=== PATIENT | male | born 1950 | race Hispanic/Latino ===

== ENCOUNTER 2018-04-02 17:46 | Emergency (ER) | payer MEDICARE ==
[2018-04-02 17:46] VITALS: BMI 26.3
[2018-04-02 18:49] LABS: BASO # 0.04 K/mm3 (0.0-2.0); EOS # 0.1 (0.0-0.7); EOS % 3.1 % (1.5-5.0); GRAN # 2.16 (1.4-6.5); GRAN % 51.6 % (50.0-68.0); HEMOGLOBIN 9.6 g/dL (14.0-18.0); LYMPH # 0.9 (1.2-3.4); LYMPH % 21.3 % (22.0-35.0); MEAN CELL VOLUME 112.2 fl (80.0-105.0); MEAN CORPUSCULAR HEMOGLOBIN 36.5 pg (25.0-35.0); MEAN CORPUSCULAR HGB CONC 32.5 g/dl (31.0-37.0); MEAN PLATELET VOLUME 10.1 fl (7.0-11.0); PLATELET COUNT 556 10^3/uL (120.0-450.0); RBC 2.63 10^6/uL (3.5-6.1); RED CELL DISTRIBUTION WIDTH 18.4 % (11.5-14.5); WHITE BLOOD COUNT 4.2 10^3/ul (4.5-11.0)
--- NOTE | 2018-04-02 18:57 | RAD ---
Date of service: 04/02/2018 HISTORY: r/o infiltrate COMPARISON: No prior. FINDINGS: LUNGS: Bibasilar atelectasis/scarring. PLEURA: No significant pleural effusion identified, no pneumothorax apparent. CARDIOVASCULAR: Cardiomegaly. OSSEOUS STRUCTURES: Degenerative changes. VISUALIZED UPPER ABDOMEN: Normal. OTHER FINDINGS: None. IMPRESSION: Bibasilar atelectasis/scarring.
[2018-04-02 19:00] LABS: ALB/GLOB RATIO 1.2 (1.1-1.8); ALBUMIN 4.2 g/dL (3.0-4.8); ALT/SGPT 27 U/L (7-56); AST/SGOT 53 U/L (17-59); BLOOD UREA NITROGEN 52 mg/dL (7-21); CALCIUM 9.1 mg/dL (8.4-10.5); GFR AFRICAN-AMERICAN > 60; GFR NON-AFRICAN AMERICAN 50
--- NOTE | 2018-04-02 19:02 | ED PDOC ---
Arrival/HPI - General Chief Complaint: Abnormal Labs Time Seen by Provider: 04/02/18 18:15 Historian: Patient - History of Present Illness Narrative History of Present Illness (Text): 04/02/18 18:27 A 67 year old male presents to the emergency department sent by Dr. Mahajan for elevated postassium. Patient has had blood drawn yesterday, which showed potassium level of 5.7. Patient mentions having medications changed 2-3 months ago. Patient denies physical complaints at this time. PMD: Dr. Salazar Past Medical History - Provider Review Nursing Documentation Reviewed: Yes - Cardiac Hx Atrial Fibrillation: Yes Hx Hypertension: Yes - Neurological Hx Paralysis: No - Hematological/Oncological Hx Blood Transfusions: No Hx Blood Transfusion Reaction: No - Musculoskeletal/Rheumatological Hx Arthritis: Yes (hip) - Psychiatric Hx Emotional Abuse: No Hx Physical Abuse: No Hx Substance Use: No - Anesthesia Hx Anesthesia: Yes Hx Anesthesia Reactions: No Hx Malignant Hyperthermia: No - Suicidal Assessment Feels Threatened In Home Enviroment: No Family/Social History - Physician Review Nursing Documentation Reviewed: Yes Family/Social History: No Known Family HX Smoking Status: Never Smoked Hx Alcohol Use: Yes (3-4 BEERS A DAY) Hx Substance Use: No Allergies/Home Meds Allergies/Adverse Reactions: Allergies No Known Allergies Allergy (Verified 09/20/16 12:26) Home Medications: Home Meds Medication Instructions Recorded Confirmed Atenolol [Tenormin] 25 mg PO DAILY 09/20/16 07/26/17 Digoxin [Lanoxin] 0.25 mg PO DAILY 09/20/16 07/26/17 amLODIPine [Norvasc] 10 mg PO DAILY 09/20/16 07/26/17 Warfarin Sodium [Jantoven] 5 mg PO QOTHERDAY 09/28/16 07/26/17 Aspirin [Aspirin Chewable] 81 mg PO DAILY 11/14/16 07/26/17 Warfarin [Coumadin] 7.5 mg PO QOTHERDAY 11/14/16 07/26/17 Furosemide [Lasix] 40 mg PO DAILY 07/25/17 07/26/17 Spironolactone [Aldactone] 1 tab PO BID 07/25/17 07/26/17 Review of Systems - Physician Review All systems were reviewed & negative as marked: Yes - Review of Systems Constitutional: absent: Fevers, Night Sweats Respiratory: absent: SOB Cardiovascular: absent: Chest Pain Gastrointestinal: absent: Abdominal Pain, Diarrhea, Nausea, Vomiting Neurological: absent: Headache, Dizziness Physical Exam Vital Signs Reviewed: Yes Vital Signs Pulse Resp BP Pulse Ox 04/02/18 19:50 83 18 113/63 96 Blood Pressure: Normal Pulse: Irregular Respiratory Rate: Normal Appearance: Positive for: Well-Appearing, Non-Toxic, Comfortable Pain Distress: None Mental Status: Positive for: Alert and Oriented X 3 - Systems Exam Head: Present: Atraumatic, Normocephalic Pupils: Present: PERRL Extroacular Muscles: Present: EOMI Conjunctiva: Present: Normal Mouth: Present: Moist Mucous Membranes Respiratory/Chest: Present: Clear to Auscultation, Good Air Exchange. No: Respiratory Distress, Accessory Muscle Use Cardiovascular: Present: Irregular Rhythm Abdomen: Present: Distention (slightly), Other (ascites). No: Tenderness Upper Extremity: Present: Normal Inspection. No: Cyanosis, Edema Lower Extremity: Present: Normal Inspection. No: Edema Neurological: Present: GCS=15, CN II-XII Intact, Speech Normal Skin: Present: Warm, Dry, Normal Color. No: Rashes Psychiatric: Present: Alert, Oriented x 3, Normal Insight, Normal Concentration Medical Decision Making ED Course and Treatment: 04/02/18 18:29 Impression: 67 year old male with elevated potassium level. Physical exam shows heart rate is irregularly irregular rhythm; abdomen is slightly distended, with positive ascites. Plan: -- EKG -- Chest X-ray -- Labs -- Urinalysis -- Reassess and disposition Progress Notes: 04/02/2018 18:55 Chest X-ray IMPRESSION: Bibasilar atelectasis/scarring. Dictator: Kaylie Harrell MD EKG: Ordered, reviewed, and independently interpreted the EKG. Rate : 89 BPM Rhythm : Atrial Fibrillation. Interpretation : Incomplete Right Bundle Branch Block. Comparison : No previous EKG for comparison. 04/02/18 19:[address] Mahajan regarding test results, who will have patient follow-up with him and senior radiation protection technician in 1-2 days. - Lab Interpretations Lab Results: 04/02/18 18:35 04/02/18 18:35 Lab Results 04/02/18 19:30: Urine Color Yellow, Urine Appearance Clear, Urine pH 6.0, Ur Specific [place] 1.020, Urine Protein Negative, Urine Glucose (UA) Negative, Urine Ketones Negative, Urine Blood Negative, Urine Nitrate Negative, Urine Bilirubin Negative, Urine Urobilinogen 0.2, Ur Leukocyte Esterase Negative 04/02/18 18:35: Sodium 143, Potassium 4.8, Chloride 110 H, Carbon Dioxide 22, Anion Gap 16, BUN 52 H, Creatinine 1.4, Est GFR ( Amer) > 60, Est GFR ( Non-Af Amer) 50, Random Glucose 91, Calcium 9.1, Magnesium 2.6 H, Total Bilirubin 0.9, AST 53, ALT 27, Alkaline Phosphatase 198 H, Lactate Dehydrogenase 577, Total Creatine Kinase 25 L, Troponin I < 0.01, Total Protein 7.5, Albumin 4.2, Globulin 3.4, Albumin/Globulin Ratio 1.2 04/02/18 18:35: WBC 4.2 L D, RBC 2.63 L, Hgb 9.6 L, Hct 29.5 L, MCV 112.2 H D, MCH 36.5 H, MCHC 32.5, RDW 18.4 H, Plt Count 556 H, MPV 10.1, Gran % 51.6, Lymph % (Auto) 21.3 L, [place] % (Auto) 23.0 H, Eos % (Auto) 3.1, Baso % (Auto) 1.0 , Gran # 2.16, Lymph # (Auto) 0.9 L, [place] # (Auto) 1.0 H, Eos # (Auto) 0.1, Baso # (Auto) 0.04, Neutrophils % (Manual) 57, Lymphocytes % (Manual) 17 L, Atypical Lymphs % 2 H, Monocytes % (Manual) 19 H, Eosinophils % (Manual) 3, Basophils % (Manual) 1, Nucleated RBC % 1, Large Platelets Present, Poikilocytosis (manual Slight, Macrocytosis (manual) 1+, Ovalocytes Slight I have reviewed the lab results: Yes - RAD Interpretation Radiology Orders: 04/02/18 18:29 CHEST PORTABLE [RAD] Stat - Scribe Statement The provider has reviewed the documentation as recorded by the Luc English Provider Scribe Provider Scribe Attestation: All medical record entries made by the Scribe were at my direction and personally dictated by me. I have reviewed the chart and agree that the record accurately reflects my personal performance of the history, physical exam, medical decision making, and the department course for this patient. I have also personally directed, reviewed, and agree with the discharge instructions and disposition. Disposition/Present on Arrival - Present on Arrival Any Indicators Present on Arrival: No History of DVT/PE: No History of Uncontrolled Diabetes: No Urinary Catheter: No History of Decub. Ulcer: No History Surgical Site Infection Following: None - Disposition Have Diagnosis and Disposition been Completed?: Yes Diagnosis: Abnormal laboratory test Disposition: HOME/ ROUTINE Disposition Time: 19:05 Condition: GOOD Additional Instructions: WAN ERNANDEZ, thank you for letting us take care of you today. The emergency medical care you received today was directed at your acute symptoms. If you were prescribed any medication, please fill it and take as directed. It may take several days for your symptoms to resolve. Return to the Emergency Department if your symptoms worsen, do not improve, or if you have any other problems. Please contact your doctor or call one of the physicians/clinics you have been referred to that are listed on the Patient Visit Information form that is included in your discharge packet. Bring any paperwork you were given at discharge with you along with any medications you are taking to your follow up visit. Our treatment cannot replace ongoing medical care by a primary care provider outside of the emergency department. Thank you for allowing the [email or web address] team to be part of your care today. Follow up with your GI doctor tomorrow morning and your senior radiation protection technician this week for re-evaluation and further management. Referrals: Phani Salazar MD [Primary Care Provider] - Follow up with primary Thuy Mahajan MD [Medical Doctor] - Follow up with primary Forms: [employer] (Yoruba)
[2018-04-02 19:11] LABS: TROPONIN I < 0.01 ng/mL
[2018-04-02 19:41] LABS: URINE BILIRUBIN NEGATIVE (NEGATIVE); URINE BLOOD NEGATIVE (NEGATIVE); URINE GLUCOSE (UA) NEGATIVE (NEGATIVE); URINE LEUKOCYTE ESTERASE NEGATIVE Leu/uL (NEGATIVE); URINE PROTEIN NEGATIVE mg/dL (<30 mg/dL); URINE UROBILINOGEN 0.2 E.U./dL (<1 E.U./dL)
[2018-04-02 19:50] LABS: URINE APPEARANCE CLEAR (CLEAR); URINE COLOR YELLOW (YELLOW)
[2018-04-02 19:51] LABS: ATYPICAL LYMPHOCYTE 2 % (0.0-0.0); BASOPHIL 1 % (0.0-1.0); EOSINOPHIL 3 % (0.0-3.0); LYMPHOCYTE 17 % (22.0-35.0); MONOCYTE 19 % (1.0-6.0); NEUTROPHIL 57 % (50.0-70.0); NUCLEATED RED BLOOD CELL 1 %; POIKILOCYTOSIS SLIGHT
[2018-04-02 19:52] LABS: LARGE PLATELETS PRESENT; OVALOCYTES SLIGHT
[2018-04-02 20:04] VITALS: BP 113/63; PULSE 83; RESP 18; O2SAT 96
--- NOTE | 2018-04-03 22:17 | CARD ---
APPROVED REPORT Date of service: 04/02/2018 EKG Measurement Heart [id number] <Conclusion> Atrial fibrillation Incomplete right bundle branch block Abnormal ECG
== END 2018-04-02 19:50 | disposition home or self-care (01) ==
LOC: ED 17:46
DX: R89.9 Unspecified abnormal finding in specimens from other organs, systems and tissues (principal); I10 Essential (primary) hypertension; I48.91 Unspecified atrial fibrillation

== ENCOUNTER 2019-01-27 18:49 | Inpatient (IN) | payer MEDICARE ==
--- NOTE | 2019-01-27 19:30 | ED PDOC ---
Arrival/HPI - General Chief Complaint: Shortness Of Breath Time Seen by Provider: 01/27/19 19:04 Historian: Patient - History of Present Illness Narrative History of Present Illness (Text): 01/27/19 19:33 A 68 year old male, whose past medical history includes CHF(on Lasix 40 mg), hypertension, A-Fib, presents to the emergency department complaining of increased shortness of breath for 2 weeks. Patient reports also experiencing abdomen and legs swelling. Patient states he is scheduled to see a cardiac surgeon at [facility] in 2 week evaluation for valve replacement. Patient denies any chest pain, syncope, nausea, fever, cough, or any other complaints at this time. Notes having abdomen extention treatment in the past for similar episode and is likely due for another one. Past Medical History - Provider Review Nursing Documentation Reviewed: Yes Primary Care Provider: Phani Salazar - Cardiac Hx Atrial Fibrillation: Yes Hx Congestive Heart Failure: Yes (R sided) Hx Hypertension: Yes - Neurological Hx Paralysis: No - HEENT Hx Cataracts: Yes (with removal) - Hematological/Oncological Hx Anemia: Yes Hx Blood Transfusions: No Hx Blood Transfusion Reaction: No - Musculoskeletal/Rheumatological Hx Arthritis: Yes (hip) - Psychiatric Hx Emotional Abuse: No Hx Physical Abuse: No Hx Substance Use: No - Surgical History Hx Eye Surgery: Yes (b/l cataract removal/ detached retina) Hx Orthopedic Surgery: Yes (r hip replacement) - Anesthesia Hx Anesthesia: Yes Hx Anesthesia Reactions: No Hx Malignant Hyperthermia: No - Suicidal Assessment Feels Threatened In Home Enviroment: No Family/Social History - Physician Review Nursing Documentation Reviewed: Yes Family/Social History: No Known Family HX Smoking Status: Never Smoked Hx Alcohol Use: Yes (3-4 BEERS A DAY) Hx Substance Use: No Allergies/Home Meds Allergies/Adverse Reactions: Allergies No Known Allergies Allergy (Verified 01/27/19 19:15) Home Medications: Home Meds Medication Instructions Recorded Confirmed amLODIPine [Norvasc] 10 mg PO DAILY 09/20/16 01/27/19 Warfarin Sodium [Jantoven] 5 mg PO QOTHERDAY 09/28/16 01/27/19 Aspirin [Aspirin Chewable] 81 mg PO DAILY 11/14/16 01/27/19 Warfarin [Coumadin] 7.5 mg PO QOTHERDAY 02/22/17 05/07/19 Furosemide [Lasix] 40 mg PO DAILY 07/25/17 01/27/19 Review of Systems - Physician Review All systems were reviewed & negative as marked: Yes - Review of Systems Constitutional: absent: Fevers Respiratory: SOB (increased). absent: Cough Cardiovascular: absent: Chest Pain, Syncope Gastrointestinal: Other (distended abdomen). absent: Nausea Skin: Other (bilateral leg swelling) Physical Exam Vital Signs Reviewed: Yes Vital Signs Pulse Resp BP Pulse Ox 01/27/19 19:02 109 H 18 128/84 96 Blood Pressure: Normal Pulse: Irregular Respiratory Rate: Normal Appearance: Positive for: Well-Appearing, Non-Toxic, Comfortable Pain Distress: None Mental Status: Positive for: Alert and Oriented X 3 - Systems Exam Head: Present: Atraumatic, Normocephalic Pupils: Present: PERRL Extroacular Muscles: Present: EOMI Conjunctiva: Present: Normal Mouth: Present: Moist Mucous Membranes Neck: Present: Normal Range of Motion Respiratory/Chest: Present: Rales (bibasilar) Cardiovascular: Present: Murmurs (systolic), Irregular Rhythm Abdomen: Present: Distention, Hernias (umbilical hernia that is easily reducible). No: Tenderness, Peritoneal Signs Back: Present: Normal Inspection Upper Extremity: Present: Normal Inspection. No: Cyanosis, Edema Lower Extremity: Present: Edema (+3 pitting edema bilaterally) Neurological: Present: GCS=15, CN II-XII Intact, Speech Normal Skin: Present: Warm, Dry, Normal Color. No: Rashes Psychiatric: Present: Alert, Oriented x 3, Normal Insight, Normal Concentration Medical Decision Making ED Course and Treatment: 01/27/19 19:38 Impression: 68 year old male with increasing shortness of breath, and swelling to abdomen and legs. Plan: -- EKG -- Chest X-ray -- Labs -- Urinalysis -- Lasix -- Reassess and disposition Progress Notes: 01/27/19 19:09 EKG: Ordered, reviewed, and independently interpreted the EKG. Rate : 96 BPM Rhythm : Atrial Fibrillation Interpretation : Normal QRS, normal QTC, incomplete RBBB, no ST elevations. Comparison : No previous EKG for comparison. Lasix 40mg ivp given. Labs and imaging results reviewed and discussed with patient. 01/27/19 20:[address] Salazar, who is aware and agrees with plan. Accepts pt in to his service. Pt will go to Telemetry observation for CHF. - Lab Interpretations I have reviewed the lab results: Yes - RAD Interpretation Narrative RAD Interpretations (Text): CXR: Pulmonary vascular congestion bilateral bases, R worse than L Radiology Orders: 01/27/19 19:20 CHEST PORTABLE [RAD] Stat Security Professional: ED Physician - EKG Interpretation Interpreted by ED Physician: Yes Type: 12 lead EKG - Medication Orders Current Medication Orders: Discontinued Medications Furosemide (Lasix) 40 mg IVP STAT STA Stop: 01/27/19 19:22 - Scribe Statement The provider has reviewed the documentation as recorded by the Luc English Provider Scribe Attestation: All medical record entries made by the Chauibsruthi were at my direction and personally dictated by me. I have reviewed the chart and agree that the record accurately reflects my personal performance of the history, physical exam, medical decision making, and the department course for this patient. I have also personally directed, reviewed, and agree with the discharge instructions and disposition. Disposition/Present on Arrival - Present on Arrival Any Indicators Present on Arrival: No History of DVT/PE: No History of Uncontrolled Diabetes: No Urinary Catheter: No History of Decub. Ulcer: No History Surgical Site Infection Following: None - Disposition Have Diagnosis and Disposition been Completed?: Yes Diagnosis: CHF (congestive heart failure) Disposition: HOSPITALIZED Disposition Time: 20:34 Condition: STABLE
[2019-01-27 19:42] VITALS: BMI 31.6
[2019-01-27 19:47] LABS: BASO # 0.15 K/mm3 (0.0-2.0); BASO % 1.8 % (0.0-3.0); EOS % 0.2 % (1.5-5.0); HEMOGLOBIN 10.9 g/dL (14.0-18.0); LYMPH # 1.4 (1.2-3.4); LYMPH % 17.4 % (22.0-35.0); MEAN CELL VOLUME 103.1 fl (80.0-105.0); MEAN CORPUSCULAR HEMOGLOBIN 30.6 pg (25.0-35.0); MEAN CORPUSCULAR HGB CONC 29.7 g/dl (31.0-37.0); MEAN PLATELET VOLUME 9.7 fl (7.0-11.0); MONO # 1.9 (0.1-0.6); RBC 3.56 10^6/uL (3.5-6.1); RED CELL DISTRIBUTION WIDTH 20.5 % (11.5-14.5); WHITE BLOOD COUNT 8.2 10^3/uL (4.5-11.0)
[2019-01-27 19:50] LABS: PLATELET COUNT 950 10^3/uL (120.0-450.0)
[2019-01-27 19:53] LABS: ALB/GLOB RATIO 0.8 (1.1-1.8); ALBUMIN 2.5 g/dL (3.0-4.8); CALCIUM 7.7 mg/dL (8.4-10.5)
[2019-01-27 19:56] LABS: PARTIAL THROMBOPLASTIN TIME 54.1 Seconds (26.9-38.3)
[2019-01-27 19:57] LABS: PROTHROMBIN TIME 55.3 SECONDS (9.4-12.5)
[2019-01-27 20:00] LABS: INR 4.98
[2019-01-27 20:05] LABS: TROPONIN I 0.01 ng/mL
[2019-01-27 20:44] LABS: NEUTROPHIL 62 % (50.0-70.0)
[2019-01-27 20:46] LABS: ANISOCYTOSIS 1+; BASOPHIL 2 % (0.0-1.0); HYPOCHROMIA 1+; LYMPHOCYTE 19 % (22.0-35.0); MONOCYTE 19 % (1.0-6.0); PLATELET ESTIMATE HIGH (NORMAL); ROULEAU 1+; TOXIC GRANULATION 2+
[2019-01-27 21:05] LABS: URINE BILIRUBIN NEGATIVE (NEGATIVE); URINE BLOOD NEGATIVE (NEGATIVE); URINE GLUCOSE (UA) NEGATIVE (NEGATIVE); URINE LEUKOCYTE ESTERASE NEGATIVE Leu/uL (NEGATIVE); URINE PROTEIN NEGATIVE mg/dL (<30 mg/dL); URINE UROBILINOGEN 0.2 E.U./dL (<1 E.U./dL)
[2019-01-27 21:08] LABS: URINE APPEARANCE CLEAR (CLEAR); URINE COLOR YELLOW (YELLOW)
[2019-01-28 07:24] LABS: BASO # 0.11 K/mm3 (0.0-2.0); BASO % 1.5 % (0.0-3.0); EOS % 0.5 % (1.5-5.0); HEMOGLOBIN 10.5 g/dL (14.0-18.0); LYMPH # 1.2 (1.2-3.4); LYMPH % 16.5 % (22.0-35.0); MEAN CELL VOLUME 102.8 fl (80.0-105.0); MEAN CORPUSCULAR HEMOGLOBIN 29.7 pg (25.0-35.0); MEAN CORPUSCULAR HGB CONC 28.9 g/dl (31.0-37.0); MEAN PLATELET VOLUME 9.7 fl (7.0-11.0); MONO # 1.6 (0.1-0.6); MONO % 21.6 % (1.0-6.0); RBC 3.53 10^6/uL (3.5-6.1); RED CELL DISTRIBUTION WIDTH 20.5 % (11.5-14.5); WHITE BLOOD COUNT 7.4 10^3/uL (4.5-11.0)
[2019-01-28 07:29] LABS: ALB/GLOB RATIO 0.8 (1.1-1.8); ALBUMIN 2.5 g/dL (3.0-4.8); ALT/SGPT 27 U/L (7-56); AST/SGOT 53 U/L (17-59); BLOOD UREA NITROGEN 63 mg/dL (7-21); CALCIUM 7.8 mg/dL (8.4-10.5); GFR NON-AFRICAN AMERICAN 35; PROTHROMBIN TIME 55.2 SECONDS (9.4-12.5); TROPONIN I < 0.01 ng/mL
[2019-01-28 07:31] LABS: INR 4.88; PLATELET COUNT 882 10^3/uL (120.0-450.0)
--- NOTE | 2019-01-28 08:08 | RAD ---
Date of service: 01/27/2019 HISTORY: dyspnea COMPARISON: 04/02/2018 TECHNIQUE: 1 view obtained. FINDINGS: LUNGS: Minimal right lower lobe infiltrate and small effusion PLEURA: No significant pleural effusion identified, no pneumothorax apparent. CARDIOVASCULAR: No aortic atherosclerotic calcification present. Moderate cardiomegaly no pulmonary vascular congestion. OSSEOUS STRUCTURES: No significant abnormalities. VISUALIZED UPPER ABDOMEN: Normal. OTHER FINDINGS: None. IMPRESSION: Minimal right lower lobe infiltrate and small effusion
[2019-01-28] MEDS: Milrinone 20mg/100ml D5W 100 ML IV PRN ×2 (09:23→22:10)
--- NOTE | 2019-01-28 09:40 | CARD ---
APPROVED REPORT Date of service: 01/27/2019 EKG Measurement Heart [id number] <Conclusion> Atrial fibrillation Low voltage QRS RSR' or QR pattern in V1 suggests right ventricular conduction delay Cannot rule out Anterior infarct, age undetermined Abnormal ECG
[2019-01-28 09:53] LABS: ANISOCYTOSIS 1+; BAND 4 % (0-2); LYMPHOCYTE 13 % (22.0-35.0); METAMYELOCYTE 4 %; MICROCYTOSIS 1+; MONOCYTE 15 % (1.0-6.0); NEUTROPHIL 64 % (50.0-70.0); PLATELET ESTIMATE HIGH (NORMAL)
[2019-01-28] MEDS: metOLazone 2.5 MG TAB PO SCH ×2 (17:35→17:55)
--- NOTE | 2019-01-28 18:38 | HP ---
HISTORY OF PRESENT ILLNESS: The patient is a 68-year-old man with a past medical history of CHF and atrial fibrillation who presented for evaluation of a 2 week history of progressively worsening lower extremity edema, exertional dyspnea and 3-pillow orthopnea. The patient is followed at [facility] by a cardiovascular surgeon and is pending evaluation for possible valve replacement/repair (the patient is unclear as to which valve). He has been doing fairly well until approximately 2 weeks ago when he developed pedal edema progressing to his scrotum and lower abdomen. He subsequently developed exertional dyspnea associated with 3-pillow orthopnea and cough intermittently productive of clear sputum. He denies fevers, chills, rigors or chest pain. Given his worsening lower edema and dyspnea, he opted for ED evaluation. In the ED he was afebrile and hemodynamically stable. On physical examination he was noted to have 3+ bilateral lower extremity edema and bibasilar crackles. Laboratory studies demonstrated an elevated BNP of 4510. The patient received a dose of intravenous Lasix and was subsequently admitted to the telemetry benitez for continued management of acute on chronic systolic heart failure exacerbation. PAST MEDICAL HISTORY: As per HPI, also hypertension, PVD, osteoarthritis of bilateral hips, alcoholic cirrhosis and history of myelodysplastic syndrome. PAST SURGICAL HISTORY: Left inguinal hernia repair, bilateral cataract removal and repair of detached retinas bilaterally. ALLERGIES: NKDA. MEDICATIONS: Amlodipine 10 mg p.o. daily, Lasix 40 mg p.o. b.i.d., Aspirin 81 mg p.o. daily, Coumadin 7.5 mg every other day and Atenolol 25 mg p.o. daily. FAMILY HISTORY: Noncontributory. SOCIAL HISTORY: The patient reports a former [id number] smoking history but quit 20 years ago. He reports former heavy daily alcohol use but quit several months ago. He denies illicit drug abuse. REVIEW OF SYSTEMS: A 12-point review of systems is negative except as per HPI. PHYSICAL EXAMINATION: VITAL SIGNS: Temperature 97.6, pulse 90, blood pressure 101/66, respiratory rate 20, oxygen saturation 96% on 2 liters nasal cannula. GENERAL: No apparent distress. HEENT: PERRL, EOMI. No scleral icterus. Mild conjunctival pallor is noted. NECK: No JVD. LUNGS: Decreased breath sounds at the bases with bibasilar crackles. CARDIOVASCULAR: Irregularly irregular. Normal S1, S2. Grade II/ murmur to RUSB. ABDOMEN: Distended with positive fluid wave. No rigidity, no tympany. EXTREMITIES: 2+ pedal edema bilaterally. NEUROLOGIC: Awake, alert and oriented x 3. No focal motor deficits. LABORATORY DATA: WBC 7.4 with 60% neutrophils, hemoglobin 10.5, hematocrit 36, platelets 882. Sodium 137, potassium 4.3, chloride 104, bicarb 26, BUN 63, creatinine 1.9, glucose 88. BNP 4510. Troponin < 0.01 x 2 sets. INR 4.88. IMAGING STUDIES: 1. Chest x-ray demonstrated cardiomegaly with right lower lobe infiltrate and effusion. ASSESSMENT: The patient is a 68-year-old man with a past medical history of congestive heart failure, atrial fibrillation and alcoholic cirrhosis who presented for evaluation of a 2 week history of progressively worsening exertional dyspnea, 3- pillow orthopnea and pedal edema and was admitted for management of acute on chronic systolic heart failure exacerbation. PLAN: 1. Acute on chronic systolic heart failure exacerbation. Input from Dr. Hirsch noted and greatly appreciated. The patient remains on Lasix 40 mg IV q. 12 hours and Milrinone infusion. We will obtain the records from [facility] to review his most recent echocardiogram. We will continue to monitor strict I&O's and daily weights. 2. Atrial fibrillation. The patient remains rate-controlled. Continue Atenolol 25 mg p.o. daily. Coumadin remains on hold given his supratherapeutic INR. Due to the fact the patient not having active bleed, there is no indication to reverse his INR at present. 3. Hypertension. Blood pressure controlled. Continue Atenolol 25 mg p.o. daily. 4. Alcoholic cirrhosis. We will continue to diurese the patient as above and will defer paracentesis at present. 5. Myelodysplastic syndrome. Labs demonstrate hemoglobin and platelets at the patient's baseline. 6. Peripheral vascular disease. 7. Prophylaxis. GI prophylaxis not indicated as the patient is eating. DVT prophylaxis not indicated as the patient remains on Coumadin. CODE STATUS: Full code. Sameer Salazar MD [facility] # [id number] ION
--- NOTE | 2019-01-28 20:44 | CON ---
DATE: 01/28/2019 CONSULT SERVICE: Cardiology. REASON FOR CONSULTATION AND FOLLOWUP: Cardiac evaluation with shortness of breath, decompensated congestive heart failure, and history of chronic atrial fibrillation. BRIEF CLINICAL HISTORY: This is a 68-year-old male with a past medical history significant for congestive heart failure; history of alcohol abuse heavy in the past, quit since January; history of hypertension; history of thrombocytopenia; history of atrial fibrillation for the last 25 years, and on Coumadin for the last 10 years, being followed by Dr. Clayton in [place] and recently went to [facility], being evaluated and echo done, was told that one of the valves is widely opened and being evaluated for open heart surgery and cardiac catheterization, who came in with a scrotal swelling, leg swelling, and generalized body swelling and shortness of breath. PAST MEDICAL HISTORY: Significant for congestive heart failure, chronic atrial fibrillation, thrombocytopenia in the past, and history of cardiac catheterization [address] [facility], has normal coronaries. The patient has platelet disorder, not thrombocytopenia. The patient says there are low platelets, but actually it is high platelets and he was told by Dr. Mahajan that it is secondary to probably alcohol abuse in July; since the patient stopped and now the platelet number went up, though initially it was told that his number was low. History of chronic atrial fibrillation in the past last 25 years and Coumadin for last 10 years. SOCIAL HISTORY: Denies any history of smoking, but history of heavy alcohol abuse in the past and according to him, it is slowed down since July last year. CURRENT MEDICATIONS: Amlodipine 10 mg daily, Coumadin 7.5 alternate with 5 mg daily, Lasix 40 mg daily, and baby aspirin 81 mg daily. PREVIOUS CARDIAC WORKUP: The patient had a stress test on 11/14/2016, essentially normal myocardial perfusion study and ejection fraction 61%. REVIEW OF SYSTEMS: As per HPI. PHYSICAL EXAMINATION: As follows; GENERAL: Height of the patient 6 feet 1 inch, weight of the patient 240 pounds, and body mass index 32 kg/m2. VITAL SIGNS: Temperature afebrile, heart rate 90, and blood pressure 101/66. HEENT: PERRLA. Extraocular muscles intact. NECK: Supple. No carotid bruits or thyromegaly. CHEST: Clear to auscultation. HEART: S1 and S2 regular. ABDOMEN: Soft. EXTREMITIES: 1 to 2+ pedal edema; significant enlargement of the scrotal swelling and generalized anasarca noted. LABORATORY DATA: Blood workup as follows; WBC 7.4, hemoglobin 10.5, hematocrit 36.3, and platelet count 882. Chemistry shows sodium 137, potassium 4.3, chloride 104, carbon dioxide 26, anion gap of 11, BUN 63, and creatinine 1.9. Troponin 0.01 x2 negative. EKG; atrial fibrillation, heart rate of 96, poor RR progression, and small low voltage QRS complex. Chest x-ray consistent with mild congestion, poor inspiratory effort, but shows minimal congestion. 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 Recently being evaluated at [facility] and found to be significant regurgitant valvular heart disease and being evaluated by surgeon for open heart surgery. Next appointment with the surgeon in next week. Admitted with acute decompensated congestive heart failure with scrotal swelling and 2+ pedal edema. Last stress test in 2017 shows a preserved left ventricular function. RECOMMENDATIONS: We will get the report from [facility], the echo done last week. Start IV Lasix. We will start on Primacor and aggressive diuresis. The patient is on Coumadin. Today Coumadin level is 4.8, yesterday it was 4.98, so we will hold the Coumadin for now and follow up level tomorrow. Even the INR was below 2.5, we will start Coumadin. Further recommendations depending upon the hospital course. We will follow with you. Discussed with Dr. Sameer Salazar. The patient also has a history of cardiac catheterization 10 years ago and was told normal at [facility]. Estevan Hirsch MD
[2019-01-28] MEDS ORDERED: metOLazone 2.5 MG TAB PO SCH (20:54)
--- NOTE | 2019-01-28 22:46 | PN ---
DATE: 01/28/2019 REASON FOR DICTATION: Fax report from [facility] received and in summary as follows: The patient had an echocardiography done on 01/13/2019 that revealed normal LV size and function, ejection fraction reported 55% to 60%, diastolic dysfunction, severely dilated and moderately hypokinetic RV suggestive of RV pressure and volume overload, severe biatrial enlargement, [id number] eccentric posteriorly and laterally directed mitral regurgitation, poorly coaptation with torrential severe tricuspid regurgitation noted, mild aortic stenosis, at least moderate pulmonary hypertension, RV systolic pressure reported 45 to 50. Pulmonary artery pressure may be underestimated given the RV single chamber physiology. So, we will hold the echo and plan is to continue Primacor, continue diuresed when the patient stabilizes, we will send back to [facility] because the patient is being evaluated by the surgeon for mitral valve as well as tricuspid repair. Thank you Dr. Sameer Salazar for providing us the opportunity in taking care of the patient, Jusitn Rojo. Estevan Hirsch MD
[2019-01-29 07:07] LABS: BASO # 0.04 K/mm3 (0.0-2.0); BASO % 0.6 % (0.0-3.0); EOS % 0.6 % (1.5-5.0); HEMOGLOBIN 9.8 g/dL (14.0-18.0); LYMPH # 0.9 (1.2-3.4); LYMPH % 15.1 % (22.0-35.0); MEAN CELL VOLUME 102.1 fl (80.0-105.0); MEAN CORPUSCULAR HEMOGLOBIN 29.8 pg (25.0-35.0); MEAN CORPUSCULAR HGB CONC 29.2 g/dl (31.0-37.0); MEAN PLATELET VOLUME 9.7 fl (7.0-11.0); MONO # 1.4 (0.1-0.6); MONO % 21.9 % (1.0-6.0); RBC 3.29 10^6/uL (3.5-6.1); RED CELL DISTRIBUTION WIDTH 19.9 % (11.5-14.5); WHITE BLOOD COUNT 6.2 10^3/uL (4.5-11.0)
[2019-01-29 07:19] LABS: ALB/GLOB RATIO 0.8 (1.1-1.8); ALBUMIN 2.4 g/dL (3.0-4.8); CALCIUM 7.8 mg/dL (8.4-10.5)
[2019-01-29 07:28] LABS: PROTHROMBIN TIME 44.7 SECONDS (9.4-12.5)
[2019-01-29 07:29] LABS: INR 3.96
--- NOTE | 2019-01-29 10:29 | PN ---
SUBJECTIVE: The patient was seen and examined at bedside on the telemetry benitez. No acute events overnight. He remains afebrile and hemodynamically stable. The patient has diuresed 2 liters since admission and reports significant improvement in his presenting symptoms. This morning he feels ok and offers no complaints. OBJECTIVE: VITAL SIGNS: Temperature 98, pulse 108, blood pressure 125/60, respiratory rate 20, oxygen saturation 98% on room air. GENERAL: No apparent distress. HEENT: PERRL, EOMI. No scleral icterus. Mild conjunctival pallor is noted. NECK: No JVD. No bruits. LUNGS: Decreased breath sounds at the bases with bibasilar crackles. CARDIOVASCULAR: Irregularly irregular. Normal S1, S2, Grade II/ murmur to right upper sternal border. ABDOMEN: Soft, but distended. No rigidity, no tympany. No tenderness. EXTREMITIES: 2+ pedal edema bilaterally. NEUROLOGIC: Awake, alert and oriented x 3. No focal motor deficits. LABORATORY DATA: WBC 6.2, hemoglobin 9.8, hematocrit 34, platelets 827. Sodium 135, potassium 4.4, chloride 103, bicarb 26, BUN 64, creatinine 1.9, glucose 90. ASSESSMENT: The patient is a 68-year-old man with a past medical history of diastolic heart failure, Afib and alcoholic cirrhosis who was admitted for management of acute on chronic diastolic heart failure exacerbation. PLAN: 1. Acute on chronic diastolic heart failure exacerbation. Input from Dr. Hirsch noted and the patient was diuresed nicely since admission. He remains on Lasix 40 mg IV b.i.d. and Milrinone infusion. After reviewed the records from [facility] it appears that the patient has predominantly right-sided heart failure with a preserved EF. He also has rather severe tricuspid valve disease and mitral valve disease and is pending evaluation for repair with a cardiothoracic surgeon. 2. Afib. The patient remains rate-controlled. Continue Atenolol 25 mg p.o. daily. Coumadin remains on hold given supratherapeutic INR. We will continue to monitor INR daily with goal 2-3. 3. Hypertension. Blood pressure controlled. Continue Atenolol 25 mg p.o. daily. 4. Alcoholic cirrhosis. 5. Myelodysplastic syndrome. 6. Peripheral vascular disease. 7. CKD stage III/IV. Input from Dr. Connell noted. Continue with care as per Dr. Connell. 8. Severe tricuspid regurgitation. The patient is pending evaluation with a cardiothoracic surgeon at [facility]. 9. Prophylaxis. GI prophylaxis is not indicated as the patient is eating. DVT prophylaxis is not indicated as the patient remains on Coumadin. CODE STATUS: Full code. Sameer Salazar MD MTDD
--- NOTE | 2019-01-29 10:30 | CON ---
DATE OF CONSULTATION: 01/28/2019 REASON FOR CONSULTATION: Acute kidney injury, edema, shortness of breath. HISTORY OF PRESENTING ILLNESS: A 68-year-old male, previously unknown to me. The patient presented to the emergency room for progressive swelling of his lower extremities, swelling of his scrotum, difficulty breathing, dyspnea on exertion. In the emergency room, he was found to be normotensive, afebrile, his heart rate was found to be somewhat elevated at 109. His hemoglobin was 10.9. His BUN was 62 and creatinine was 1.9. Consultation is requested for acute kidney injury. The patient has a history of alcoholic liver disease, anasarca, cirrhosis of the liver, CHF, hypertension, chronic kidney disease stage III?. The patient reports that he is scheduled to have an evaluation at [facility] for valve replacement. PAST MEDICAL AND SURGICAL HISTORY: Hypertension, peripheral vascular disease, osteoarthritis of the hips, alcoholic cirrhosis, myelodysplastic syndrome, atrial fibrillation. FAMILY HISTORY: Noncontributory. SOCIAL HISTORY: No smoking, heavy alcohol abuse, five to six drinks per day for the last 50 years, stopped 6 months ago. No drug abuse. ALLERGIES: NO KNOWN DRUG ALLERGIES. MEDICATIONS AT HOME: Amlodipine 10 mg, Coumadin, furosemide 40 mg, aspirin 81. PHYSICAL EXAMINATION: GENERAL: Elderly male lying in bed, in moderate respiratory distress. VITAL SIGNS: Blood pressure 108/62, heart rate 95, respiratory rate 20-24, temperature 97.6. HEENT: Normocephalic, atraumatic, positive pallor. NECK: Supple, no JVD. LUNGS: Bilateral equal entry, bilateral equal expansion, minimal basilar rales. CARDIAC: S1 and S2, regular rate and rhythm, no murmur, no rub. ABDOMEN: Obese, distended, soft, positive fluid thrill, bowel sounds present. EXTREMITIES: 3+ pitting edema of the lower extremities, edema of the scrotal sac INTAKE AND OUTPUT: 250/300. LABORATORY DATA: WBC 7.4, hemoglobin 10.5, hematocrit 36, platelets 882. Sodium 37, potassium 4.3, chloride 104, CO2 of 26, BUN 63, creatinine 1.9, glucose 88, calcium 7.8, AST 53, ALT 27, albumin 2.5. Urinalysis, yellow, clear, pH 6, specific 1020, protein negative, blood negative. CURRENT MEDICATIONS: Aspirin 81, Lasix 40 IV every 12 hours, Primacor 20 mg, Tenormin 25. ASSESSMENT: 1. Anasarca, dyspnea on exertion, total body volume overload, likely secondary to right heart failure. 2. History of alcoholic liver disease, cirrhosis of the liver. 3. Myelodysplastic syndrome, anemia, thrombocytosis 4. Hypertension. 5. Acute kidney injury superimposed on chronic kidney disease stage III?. 6. Valvular heart disease. PLAN: 1. Continue Lasix 40 IV every 12 hours. 2. Add metolazone 2.5 b.i.d. 3. Add Aldactone 25 b.i.d. 4. Check intake and output. 5. Daily electrolytes. 6. Etiology of his acute kidney injury is cardiorenal syndrome. Brenda Connell MD MTDD
--- NOTE | 2019-01-29 12:05 | CP.PCM.CON ---
<Mitch Dixonson - Last Filed: 01/29/19 12:01> History of Present Illness - History of Present Illness History of Present Illness: Podiatry consult - Drs. Aleman/Niki 68M seen and evaluated at bedside this AM for elongated nails. Resting comfortably. Reports mild discomfort to nails when putting on socks and shoegear as well as when pulling up bedsheets. States that he cuts his nails at home but occasionally notices bleeding from the nails and does not have full feeling in his toes and feet. Denies n/v/f/c today and has no other acute pedal complaints. Past Patient History - Past Social History Smoking Status: Never Smoked - CARDIAC Hx Cardiac Disorders: Yes Hx Cardia Arrhythmia: Yes (afib) Hx Congestive Heart Failure: Yes Hx Hypercholesterolemia: Yes Hx Hypertension: Yes Hx Peripheral Edema: Yes - PULMONARY Hx Respiratory Disorders: Yes - NEUROLOGICAL Hx Neurological Disorder: Yes - HEENT Hx HEENT Problems: Yes (reading galsses) Hx Cataracts: Yes (with removal) - RENAL Hx Chronic Kidney Disease: No - ENDOCRINE/METABOLIC Hx Endocrine Disorders: No - HEMATOLOGICAL/ONCOLOGICAL Hx Blood Disorders: Yes (blood transfusion) Hx Anemia: Yes - INTEGUMENTARY Hx Dermatological Problems: No - MUSCULOSKELETAL/RHEUMATOLOGICAL Hx Musculoskeletal Disorders: No - GASTROINTESTINAL Hx Gastrointestinal Disorders: No - GENITOURINARY/GYNECOLOGICAL Hx Genitourinary Disorders: No - PSYCHIATRIC Hx Psychophysiologic Disorder: Yes (etoch and stopped for one year ago) - SURGICAL HISTORY Hx Surgeries: Yes (hernia repair,cataract sx) Hx Orthopedic Surgery: Yes (r hip replacement) - ANESTHESIA Hx Anesthesia: Yes Hx Anesthesia Reactions: No Hx Malignant Hyperthermia: No Meds Allergies/Adverse Reactions: Allergies Allergy/AdvReac Type Severity Reaction Status Date / Time No Known Allergies Allergy Verified 01/27/19 19:15 - Medications Medications: Current Medications Aspirin (Aspirin Chewable) 81 mg PO DAILY [facility] Last Admin: 01/29/19 11:39 Dose: 81 mg Atenolol (Tenormin) 25 mg PO DAILY [facility] Last Admin: 01/29/19 11:39 Dose: 25 mg Furosemide (Lasix) 40 mg IVP 0600,1800 [facility] Last Admin: 01/29/19 06:47 Dose: 40 mg Milrinone Lactate/Dextrose (Primacor 20mg/100ml D5w) 100 mls @ 6.532 mls/hr IV .[id number] PRN; Protocol PRN Reason: TITRATE PER MD ORDER Stop: 01/30/19 08:40 Last Admin: 01/28/19 22:10 Dose: 0.2 mcg/kg/min, 6.532 mls/hr Metolazone (Zaroxolyn) 2.5 mg PO 0530,1730 [facility] Spironolactone (Aldactone) 50 mg PO BID [facility] Last Admin: 01/29/19 11:39 Dose: 50 mg Physical Exam - Constitutional Appears: Non-toxic - Head Exam Head Exam: ATRAUMATIC - Extremities Exam Additional comments: VASC: pulses nonpalpable 2/2 moderate pitting edema; temp gradient wnl; cap refill <3 seconds to digits DERM: no open lesions or wounds, dystrophic elongated nails x 10 ORTHO: no gross pathology noted NEURO: diminished - Neurological Exam Neurological exam: Alert, Oriented x3 - Psychiatric Exam Psychiatric exam: Normal Affect Results - Vital Signs Recent Vital Signs: Last Vital Signs Temp 98 F 01/29/19 06:00 Pulse 108 H 01/29/19 06:00 Resp 20 01/29/19 06:00 BP 125/60 01/29/19 06:47 Pulse Ox 96 01/28/19 06:00 - Labs Result Diagrams: 01/29/19 06:30 01/29/19 06:30 Labs: Laboratory Results - last 24 hr 01/29/19 01/29/19 01/29/19 06:30 06:30 06:30 WBC 6.2 RBC 3.29 L Hgb 9.8 L Hct 33.6 L MCV 102.1 MCH 29.8 MCHC 29.2 L RDW 19.9 H Plt Count 827 H* MPV 9.7 Neut % (Auto) 61.8 Lymph % (Auto) 15.1 L Gray % (Auto) 21.9 H Eos % (Auto) 0.6 L Baso % (Auto) 0.6 Lymph # (Auto) 0.9 L Gray # (Auto) 1.4 H Eos # (Auto) 0.0 Baso # (Auto) 0.04 Absolute Neuts (auto) 3.80 PT 44.7 H INR 3.96 H* Sodium 135 Potassium 4.4 Chloride 103 Carbon Dioxide 26 Anion Gap 10 BUN 64 H Creatinine 1.9 H Est GFR ( Amer) 43 Est GFR (Non-Af Amer) 35 Random Glucose 90 Calcium 7.8 L Phosphorus 5.3 H Magnesium 2.3 H Total Bilirubin 0.7 AST 49 ALT 23 Alkaline Phosphatase 180 H Total Protein 5.5 L Albumin 2.4 L Globulin 3.0 Albumin/Globulin Ratio 0.8 L Triglycerides 96 Cholesterol 113 L LDL Cholesterol Direct 63 HDL Cholesterol 27 L TSH 3rd Generation 01/29/19 06:30 WBC RBC Hgb Hct MCV MCH MCHC RDW Plt Count MPV Neut % (Auto) Lymph % (Auto) Gray % (Auto) Eos % (Auto) Baso % (Auto) Lymph # (Auto) Gray # (Auto) Eos # (Auto) Baso # (Auto) Absolute Neuts (auto) PT INR Sodium Potassium Chloride Carbon Dioxide Anion Gap BUN Creatinine Est GFR ( Amer) Est GFR (Non-Af Amer) Random Glucose Calcium Phosphorus Magnesium Total Bilirubin AST ALT Alkaline Phosphatase Total Protein Albumin Globulin Albumin/Globulin Ratio Triglycerides Cholesterol LDL Cholesterol Direct HDL Cholesterol TSH 3rd Generation 1.72 Assessment & Plan - Assessment and Plan (Free Text) Assessment: 68M with elongated dystrophic toenails Plan: Patient seen and evaluated Discussed in detail with Dr. Prince Nails cut with nail nipper without incident, patient tolerated well Instructed patient to f/u as outpatient with Dr. Prince for risk assessment and nailcare Podiatry to sign off Thank you for the consult - Date & Time Date: 01/29/19 Time: 12:05 <Melissa Prince - Last Filed: 01/30/19 11:36> Meds - Medications Medications: Current Medications Aspirin (Aspirin Chewable) 81 mg PO DAILY [facility] Last Admin: 01/30/19 10:00 Dose: 81 mg Atenolol (Tenormin) 25 mg PO DAILY [facility] Last Admin: 01/30/19 10:00 Dose: 25 mg Digoxin (Lanoxin) 0.25 mg IVP ONCE ONE Stop: 01/30/19 13:01 Diltiazem HCl (Cardizem) 30 mg PO TID [facility] Last Admin: 01/30/19 10:00 Dose: 30 mg Furosemide (Lasix) 40 mg IVP 0600,1800 [facility] Last Admin: 01/30/19 05:44 Dose: 40 mg Metolazone (Zaroxolyn) 2.5 mg PO 0989,1730 [facility] Last Admin: 01/30/19 05:43 Dose: 2.5 mg Spironolactone (Aldactone) 50 mg PO BID [facility] Last Admin: 01/30/19 10:00 Dose: 50 mg Results - Vital Signs Recent Vital Signs: Last Vital Signs Temp 97.8 F 01/30/19 06:00 Pulse 108 H 01/30/19 10:00 Resp 20 01/30/19 06:00 BP 124/60 01/30/19 10:00 Pulse Ox 96 01/30/19 06:00 - Labs Result Diagrams: 01/30/19 06:20 01/30/19 06:20 Labs: Laboratory Results - last 24 hr 01/29/19 01/30/19 01/30/19 06:30 06:20 06:20 WBC 6.0 RBC 3.35 L Hgb 9.9 L Hct 34.0 L MCV 101.5 MCH 29.6 MCHC 29.1 L RDW 20.0 H Plt Count 745 H* MPV 9.7 Neut % (Auto) 66.8 Lymph % (Auto) 13.2 L Gray % (Auto) 19.0 H Eos % (Auto) 0.7 L Baso % (Auto) 0.3 Lymph # (Auto) 0.8 L Gray # (Auto) 1.2 H Eos # (Auto) 0.0 Baso # (Auto) 0.02 Absolute Neuts (auto) 4.03 PT INR Sodium 135 Potassium 4.3 Chloride 101 Carbon Dioxide 28 Anion Gap 10 BUN 59 H Creatinine 1.8 H Est GFR ( Amer) 45 Est GFR (Non-Af Amer) 38 Random Glucose 92 Hemoglobin A1c 5.3 Calcium 7.8 L Total Bilirubin 0.7 AST 57 ALT 23 Alkaline Phosphatase 188 H Total Protein 5.5 L Albumin 2.5 L Globulin 3.0 Albumin/Globulin Ratio 0.8 L 01/30/19 06:20 WBC RBC Hgb Hct MCV MCH MCHC RDW Plt Count MPV Neut % (Auto) Lymph % (Auto) Gray % (Auto) Eos % (Auto) Baso % (Auto) Lymph # (Auto) Gray # (Auto) Eos # (Auto) Baso # (Auto) Absolute Neuts (auto) PT 31.8 H INR 2.81 Sodium Potassium Chloride Carbon Dioxide Anion Gap BUN Creatinine Est GFR ( Amer) Est GFR (Non-Af Amer) Random Glucose Hemoglobin A1c Calcium Total Bilirubin AST ALT Alkaline Phosphatase Total Protein Albumin Globulin Albumin/Globulin Ratio Attending/Attestation - Attestation I have personally seen and examined this patient.: Yes I have fully participated in the care of the patient.: Yes I have reviewed all pertinent clinical information: Yes
[2019-01-29] MEDS: Milrinone 20mg/100ml D5W 100 ML IV PRN (13:19)
--- NOTE | 2019-01-29 14:23 | PN ---
DATE: 01/29/2019 REASON FOR CONSULTATION AND FOLLOWUP: Cardiac evaluation, admitted with shortness of breath, acute decompensated congestive heart failure (right heart failure), history of chronic atrial fibrillation. SUBJECTIVE: The patient denies any chest pain. Feels a lot better. Scrotal swelling is going down as well as the leg swelling and his shortness of breath also improved. OBJECTIVE: GENERAL: Not in apparent distress. Lying flat on the bed. VITAL SIGNS: Temperature afebrile, heart rate 108, blood pressure 125/60. HEENT: PERRLA. Extraocular muscles intact. NECK: Supple. No carotid bruits. No thyromegaly. CHEST: Clear to auscultation. HEART: S1 and S2, irregular. ABDOMEN: Soft. EXTREMITIES: 1+ pedal edema. Scrotal swelling noted, but it is decreased from yesterday. Telemetry shows atrial fibrillation rate between 100-110. LABORATORY DATA: Blood workup; WBC 6.2, hemoglobin 9.8, hematocrit 33.6, platelet count 826. Chemistry showed sodium 135, potassium 4.4, chloride 103, carbon dioxide 26, anion gap of 10, BUN 16, creatinine 1.9, total protein 5.4, albumin 2.4, albumin-globulin ratio 0.8. TSH 1.72. Triglycerides 96. Cholesterol 113, LDL is 63, HDL 27. The patient had an echocardiography done in [facility], date 01/13/2019 that read normal LV size and function, ejection fraction 55-60%, severely dilated right ventricle and moderate hypokinetic. RV suggestive of RV pressure volume overload, severe biatrial enlargement, [id number] eccentric posterior lead directed jet from mitral regurgitation with poorly coaptation of both leaflet. Severe tricuspid regurgitation noted, mild aortic stenosis, RV systolic pressure 45-50. This RV pressure could be underestimated because of the single-chamber physiology. IMPRESSION: A 68-year-old male with past medical history significant for atrial fibrillation for at least 20 years, history of heavy alcohol abuse, platelet dysfunction as the patient mentioned and told by doctor to stop alcohol abuse and since the patient is off alcohol, has now essential thrombocytosis; admitted with right-sided heart failure, acute compensated secondary right heart failure, secondary wide open tricuspid regurgitation and mitral regurgitation though still left ventricular function is preserved. The patient is being evaluated at [facility] for valve surgery, for mitral valve repair as well as tricuspid repair. Admitted here with right-sided acute decompensated heart failure. We started treating the patient with intravenous Primacor and diuretics. The patient is diuresing and having 2 L negative fluid balance since yesterday. RECOMMENDATIONS: Continue aggressively electrolyte. Continue aggressive diuretics. Continue for next 24 hours of the Primacor and if remains stable, discontinue Primacor tomorrow and possible discharge home. The patient's still INR is elevated, today's INR is 3.96, so Coumadin is on hold. Continue baby aspirin. Continue spironolactone and continue atenolol and metolazone was added yesterday 2.[address] Connell. We will follow with you. Once the patient is stabilized possible tomorrow, we will discharge and follow up at [facility]. Also, we will follow PT/INR and if the PT/INR goes below 2.5, we will start Coumadin again. Troponin remains flat, no evidence of acute myocardial infarction. Thank you for providing us the opportunity in taking care of this patient, Darrel Anderson. Estevan Hirsch MD
[2019-01-29] MEDS: metOLazone 2.5 MG TAB PO SCH (17:08)
--- NOTE | 2019-01-29 20:37 | CON ---
DATE OF CONSULTATION: 01/29/2019 GENITOURINARY CONSULTATION CHIEF COMPLAINT: Anasarca. HISTORY OF PRESENT ILLNESS: This is a 68-year-old male, who was seen in [facility]. The patient has a history of worsening CHF and anasarca with massive lower extremity and genital edema. He was having worsening shortness of breath and three-pillow orthopnea. He is followed at [facility] and is pending evaluation for a valve replacement. However, the patient decompensated and in [facility]. The patient has been improving with diuretics. He has been voiding with sprain of urine although he reports voiding good amounts and not having obstruction; however, he had a prior Luna catheter placed when he was at [facility] last time, and a request was made for a Luna catheter, as he has a mildly distended bladder. PAST MEDICAL HISTORY: Significant for congestive heart failure, anasarca, massive lower extremity and genital edema, hypertension, peripheral vascular disease, arthritis, alcoholic cirrhosis, and myelodysplastic syndrome. PAST SURGICAL HISTORY: Inguinal hernia repair, cataract repair and bilateral detached retinas. MEDICATIONS: Medications at home include amlodipine, Lasix, aspirin, Coumadin, and atenolol. ALLERGIES: NO KNOWN DRUG ALLERGIES. FAMILY HISTORY: Noncontributory for this admission. SOCIAL HISTORY: Former alcohol abuser and former smoker, but quit years ago. REVIEW OF SYSTEMS: Twelve-point review of systems was obtained. Positive for cough and shortness of breath. Positive for edema. Positive for sprain of urine. Denies any dysuria or gross hematuria. Denies flank pain or history of stones. PHYSICAL EXAMINATION: GENERAL: The patient is awake and alert. He is in no acute distress. He is afebrile. VITAL SIGNS: Temperature of 97.4, pulse of 105, BP 132/65, respirations 20. NECK: Supple without adenopathy. CHEST: Exam of the chest reveals slightly increased inspiratory effort. CARDIAC: Shows an irregular rhythm. Positive S1, S2. GASTROINTESTINAL: The abdomen is edematous and distended. There is no rebound or guarding. There is no CVA tenderness. GENITOURINARY: Phallus has 2+ edema. Uncircumcised scrotum. 2 to 3+ edema. Testes are descended, but not able to be palpated. No tenderness noted. EXTREMITIES: There is no cyanosis. There is massive pitting edema bilaterally. LABORATORY EXAMINATION: WBC count normal at 6.2, platelet count elevated at 827, hemoglobin 9.8, with a hematocrit of 33.6, creatinine stable at 1.9 with an elevated BUN of 64. BNP 4510. Urinalysis negative for blood, negative for nitrites, negative for leukocytes. IMPRESSION AND PLAN: This is a 68-year-old male with massive congestive heart failure and edema. Urologically, the patient is voiding although through with an edematous foreskin. I was able to manually reduce the edema by compressing the foreskin; however, given the massive abdominal edema and scrotal edema, unable to retract the foreskin to visualize the glans. I made a few attempts to blindly pass a Luna catheter and guide it into the urethral meatus; however, this was not successful. The patient is not uncomfortable, and he is able to void spontaneously. Plan for now will be to leave him without the Luna catheter and monitor his urine output. Scrotum and phallus will be elevated on folded towels, and the patient will continue to receive diuretics. I will recheck him and see if there is improvement and possibly the foreskin can be retracted. I will discuss with Dr. Salazar if the patient absolutely needs a Luna catheter, we can take him to the operating room for a cystoscopy under local in order to locate the urethral meatus and pass a wire at that point and then most likely place a [place]-tip catheter. However, given the patient's current condition, I would try to avoid any procedures which would require anesthesia. His creatinine is currently stable, appears mildly elevated because of the intravascular depletion given the elevated BUN and diuretic usage. Thank you for allowing me to participate in the care of this patient. I will follow him with you. Curtis Reid MD
--- NOTE | 2019-01-29 22:23 | PN ---
DATE: 01/29/2019 SUBJECTIVE: The patient is seen lying in bed. He is awake. He is alert. He reports that he is urinating a lot, but he still has a lot of swelling. He had a bladder scan done, which showed a urine volume of 660 mL postvoiding. He was seen by Urology. Unsuccessful attempt at placing the Luna catheter because of the swelling. PHYSICAL EXAMINATION: GENERAL: Elderly male lying in bed. VITAL SIGNS: Blood pressure 132/65, heart rate 105, respiratory rate 20, and temperature 97.4. HEENT: Normocephalic and atraumatic. Positive pallor. NECK: Supple. No JVD. LUNGS: Bilateral equal air entry, bilateral equal expansion, minimal rales. CARDIAC: S1 and S2. Regular rate and rhythm. No murmur. No rub. ABDOMEN: Distended, soft, bowel sounds present, positive fluid thrill. EXTREMITIES: 4+ pitting edema, positive scrotal edema. INTAKE AND OUTPUT. 1890/3900. LABORATORY DATA: WBC 6.2, hemoglobin 9.8, hematocrit 34, and platelets 827. Sodium 135, potassium 4.4, chloride 103, CO2 of 26, BUN 64, creatinine 1.9, glucose 90, A1c 5.3, calcium 7.8, phosphorus 5.3, magnesium 2.3, albumin 2.4, and corrected calcium is 8.8. CURRENT MEDICATIONS: Aldactone 50 b.i.d., aspirin 81, Lasix 40 IV every 12 hours, Primacor 0.2 mcg/kg/minute, Tenormin 25, and Zaroxolyn 2.5 b.i.d. ASSESSMENT: 1. Acute kidney injury superimposed on chronic kidney disease stage III, cardiorenal syndrome. 2. Anasarca. 3. Alcoholic liver disease/cirrhosis of the liver/ascites. 4. Valvular heart disease, dilated cardiomyopathy, right heart failure. 5. Hypertension. 6. Myelodysplastic syndrome, anemia, thrombocytosis. 7. Hyperphosphatemia. PLAN: 1. Continue to diurese, the patient is on Lasix, Aldactone, and Zaroxolyn. 2. Monitor electrolytes closely. 3. Reattempt placing Luna catheter. 4. Monitor urine output closely. 5. Avoid nephrotoxins. Brenda Connell MD [facility] # [id number]
[2019-01-30 01:40] VITALS: O2SAT 96
[2019-01-30] MEDS: Milrinone 20mg/100ml D5W 100 ML IV PRN (04:47)
[2019-01-30] MEDS: metOLazone 2.5 MG TAB PO SCH (05:43)
[2019-01-30 06:31] VITALS: RESP 20
[2019-01-30 06:53] LABS: BASO # 0.02 K/mm3 (0.0-2.0); BASO % 0.3 % (0.0-3.0); EOS % 0.7 % (1.5-5.0); HEMOGLOBIN 9.9 g/dL (14.0-18.0); LYMPH # 0.8 (1.2-3.4); LYMPH % 13.2 % (22.0-35.0); MEAN CELL VOLUME 101.5 fl (80.0-105.0); MEAN CORPUSCULAR HEMOGLOBIN 29.6 pg (25.0-35.0); MEAN CORPUSCULAR HGB CONC 29.1 g/dl (31.0-37.0); MEAN PLATELET VOLUME 9.7 fl (7.0-11.0); MONO # 1.2 (0.1-0.6); RBC 3.35 10^6/uL (3.5-6.1)
[2019-01-30 06:59] LABS: INR 2.81; PROTHROMBIN TIME 31.8 SECONDS (9.4-12.5)
[2019-01-30 07:30] LABS: ALB/GLOB RATIO 0.8 (1.1-1.8); ALBUMIN 2.5 g/dL (3.0-4.8); CALCIUM 7.8 mg/dL (8.4-10.5)
[2019-01-30] MEDS ORDERED: Digoxin 500 mcg/2ml (0.5 mg/2ml) Inj IVP ONE ×2 (09:25→13:00)
[2019-01-30 12:50] VITALS: PULSE 87; TEMP 97.4
[2019-01-30 13:07] VITALS: PULSE 84
--- NOTE | 2019-01-30 14:18 | PN ---
DATE: 01/30/2019 REASON FOR CONSULTATION AND FOLLOWUP: Cardiac evaluation, admitted with shortness of breath, acute decompensated congestive heart failure (right heart failure), history of chronic atrial fibrillation. SUBJECTIVE: The patient denies any chest pain, shortness or breath, or any palpitation, on IV Primacor. OBJECTIVE: VITAL SIGNS: Temperature afebrile, heart rate 101, blood pressure 120/60. HEENT: PERRLA. Extraocular muscles intact. NECK: Supple. No carotid bruits or thyromegaly. CHEST: Clear to auscultation. HEART: S1 and S2, regular. ABDOMEN: Soft. EXTREMITIES: Clubbing, cyanosis negative. LABORATORY DATA: Blood workup; WBC 6, hemoglobin 9.9, hematocrit 34, platelet count 745. Chemistry shows sodium 135, potassium 4.3, chloride 101, carbon dioxide 28, anion gap of 10, BUN 58, creatinine 1.9. INR 2.81. IMPRESSION: A 68-year-old male with past medical history significant for heavy alcohol abuse, essential thrombocytosis, history of chronic atrial fibrillation, being evaluated at [facility] where the patient had echocardiography done that showed normal left ventricular systolic function, ejection fraction 55% to 60%, severely dilated right ventricle, moderate right ventricular hypokinesis suggestive of volume pressure overload, [id number] eccentric posterior leaflet directed mitral regurgitation consistent with [id number] mitral regurgitation secondary to poor coaptation of both leaflets, severe tricuspid regurgitation, mild aortic stenosis, right ventricular systolic pressure of 45, which may be underestimating because single chamber physiology. The patient is being evaluated at [facility] for valve surgery, admitted here with acute decompensated congestive heart failure (right heart failure), preserved left ventricular function secondary to severe tricuspid regurgitation. The patient currently on Primacor and intravenous diuresis. The patient is with significant negative fluid balance, yesterday was close to 3 L, today is 2.5 L. So, since the patient admitted, almost 8 L negative fluid balance. RECOMMENDATIONS: Monitor electrolyte closely. Since the patient's INR is improving, we will resume back Coumadin at low doses. Primacor has been discontinued. Possibly discharge home soon. We will give a dose of digoxin to control the heart rate. Further recommendations depending upon the hospital course. Upon discharge, the patient will be followed at [facility] The patient had appointment to see [facility] to decide for possible MVR and TVR. In the interim, continue atenolol. Continue aspirin. Continue metoprolol. The patient is not on CHAY inhibitor because of renal insufficiency. I will put on low dose of Cardizem to control the heart rate. Thank you Dr. Sameer Salazar, for providing us the opportunity in taking care of the patient, Justin Rojo. Estevan Hirsch MD
[2019-01-30 15:09] VITALS: BP 110/70
--- NOTE | 2019-01-30 20:01 | PN ---
DATE: 01/30/2019 SUBJECTIVE: The patient is seen lying in bed. He is awake, he is alert and he is comfortable. He reports that he might be going home today. He reports that he is urinating a lot. He denies any chest pain. He denies any shortness of breath. His swelling is coming down slowly. PHYSICAL EXAMINATION: GENERAL: Elderly male, lying in bed. VITAL SIGNS: Blood pressure 118/61, heart rate 87, respiratory rate 20, and temperature 97.4. HEENT: Normocephalic, atraumatic, and positive pallor. NECK: Supple, no JVD. LUNGS: Bilateral equal air entry and bilateral equal expansion. CARDIOPULMONARY: S1 and S2. Regular rate and rhythm. No murmur. No rub. ABDOMEN: Obese, distended, soft, and nontender. Bowel sounds present. EXTREMITIES: 3+ pitting edema of the lower extremities. Positive scrotal swelling. INTAKE AND OUTPUT: 2200/9000. LABORATORY DATA: WBC 6, hemoglobin 9.9, hematocrit 34, and platelets 745. Sodium 135, potassium 4.3, chloride 101, CO2 of 28, BUN 59, creatinine 1.8, glucose 92, and calcium 7.8. Albumin 2.5. Urinalysis, no protein and no blood. CURRENT MEDICATIONS: Aldactone 50 mg b.i.d., aspirin 81 mg, Cardizem 30 mg t.i.d., Lasix 40 mg IV every 12 hours, Tenormin 25 mg and Zaroxolyn 2.5 mg. ASSESSMENT: 1. Acute kidney injury superimposed on chronic kidney disease stage 3, renal parameters are slowly improving. 2. Cardiorenal syndrome. 3. Anasarca. 4. Myelodysplastic syndrome. 5. Alcoholic liver disease/cirrhosis of the liver/ascites. PLAN: 1. Great response to diuretics. 2. Agree with changing Lasix to p.o., metolazone to be continued, and Aldactone 50 mg b.i.d. 3. Close outpatient followup. 4. No objection to discharge. Brenda Connell MD
--- NOTE | 2019-01-31 02:10 | DS ---
HISTORY OF PRESENT ILLNESS: The patient is in room 268, bed 2. The patient at present has no complaints and there have been no acute events overnight. The patient was initially admitted for shortness of breath and decompensated congestive heart failure. The patient is also in chronic atrial fibrillation. As previously noted, he has no complaints and there were no acute events overnight. PHYSICAL EXAMINATION VITAL SIGNS: Temperature of 97.4, pulse rate of 87, blood pressure 118/61 and respiratory rate of 20. HEENT: PERRLA, EOMI. There is no icterus. The neck is with a full range of motion. No JVD or adenopathy are appreciated. There are no bruits appreciated. LUNGS: Clear to auscultation and percussion bilaterally. HEART: With an irregularly irregular rate, no murmurs appreciated. ABDOMEN: Soft. It is nontender. It is not distended. There is no organomegaly and bowel sounds are normoactive. EXTREMITIES: Show trace edema. The patient does have scrotal edema. He was seen by the Dr. Sutherland yesterday and was unable to insert a Luna, but the patient is urinating without any problems. NEUROLOGICALLY: The patient is intact. LABORATORY FINDINGS: This morning hemoglobin and hematocrit of 9.9 and 34.0 which is steady. The platelets count is down to 745,000 from 950,000. INR is 2.81. Chemistry is essentially normal with the exception of a BUN of 59 and a creatinine of 1.8 which is improving. IMPRESSION: At this time, 1. Decompensated congestive heart failure. 2. Hypertension. 3. Atrial fibrillation. PLAN: The patient will be discharged on Lasix 40 mg twice a day, spironolactone 50 mg twice a day, Zaroxolyn 2.5 mg twice a day, Coumadin 5 mg daily starting tomorrow, amlodipine 10 mg daily and aspirin 81 mg p.o. twice a day. Phani Salazar MD
== END 2019-01-30 16:31 | disposition home or self-care (01) | DRG 291 ==
LOC: ED 18:49 → ERH 20:34 → 2RNO 22:11 → OBSVTOIN 01-28 17:11
PROVIDERS: ADMIT Internal Medicine; ATTEND Internal Medicine
PROC: 0HBRXZZ Excision of Toe Nail, External Approach (ICD-10-PCS; principal; 2019-01-29)
PROC: 0HBRXZZ Excision of Toe Nail, External Approach (ICD-10-PCS; 2019-01-29)
PROC: 0HBRXZZ Excision of Toe Nail, External Approach (ICD-10-PCS; 2019-01-29)
PROC: 0HBRXZZ Excision of Toe Nail, External Approach (ICD-10-PCS; 2019-01-29)
PROC: 0HBRXZZ Excision of Toe Nail, External Approach (ICD-10-PCS; 2019-01-29)
PROC: 0HBRXZZ Excision of Toe Nail, External Approach (ICD-10-PCS; 2019-01-29)
PROC: 0HBRXZZ Excision of Toe Nail, External Approach (ICD-10-PCS; 2019-01-29)
PROC: 0HBRXZZ Excision of Toe Nail, External Approach (ICD-10-PCS; 2019-01-29)
PROC: 0HBRXZZ Excision of Toe Nail, External Approach (ICD-10-PCS; 2019-01-29)
PROC: 0HBRXZZ Excision of Toe Nail, External Approach (ICD-10-PCS; 2019-01-29)
DX: I13.0 Hypertensive heart and chronic kidney disease with heart failure and stage 1 through stage 4 chronic kidney disease, or unspecified chronic kidney disease (principal); I50.43 Acute on chronic combined systolic (congestive) and diastolic (congestive) heart failure; N17.9 Acute kidney failure, unspecified; I50.82 Biventricular heart failure; N18.3 Chronic kidney disease, stage 3 (moderate); I48.2 Chronic atrial fibrillation; M16.0 Bilateral primary osteoarthritis of hip; I73.9 Peripheral vascular disease, unspecified; D46.9 Myelodysplastic syndrome, unspecified; K70.31 Alcoholic cirrhosis of liver with ascites; F10.10 Alcohol abuse, uncomplicated; I42.0 Dilated cardiomyopathy; D69.1 Qualitative platelet defects; I08.3 Combined rheumatic disorders of mitral, aortic and tricuspid valves; I27.20 Pulmonary hypertension, unspecified; L60.3 Nail dystrophy; N50.89 Other specified disorders of the male genital organs; E83.39 Other disorders of phosphorus metabolism; R79.1 Abnormal coagulation profile; Z96.641 Presence of right artificial hip joint; Z87.891 Personal history of nicotine dependence; Z79.01 Long term (current) use of anticoagulants; Z79.82 Long term (current) use of aspirin